=== PATIENT | female | born 2000 | race Caucasian/White ===

== ENCOUNTER 2018-12-29 01:53 | Emergency (ER) | payer OTHER ==
--- NOTE | 2018-12-29 02:14 | ER Document Report ---
ED General - General Chief Complaint: Vag Bleeding, +preg <12wks Stated Complaint: VAGINAL BLEEDING Time Seen by Provider: 12/29/18 02:05 Notes: Patient is a 18-year-old female presents with complaint of some pelvic cramping and bleeding. Yesterday she had some bleeding after having sex. She has small spotting. Today she had a few episodes of cramping and recurrent bleeding. Bleeding was light. No heavy bleeding. No passing of clots. Currently she is not having pain at this time. No fevers. No vomiting. No other complaints at this time. This is her first . She is otherwise healthy. She did have one previous ultrasound but they cannot see the baby just yet and they felt that she was too early to be able to see the baby at that time. She is unsure what her blood type is. No abnormal vaginal discharge. No dysuria. She is taking vitamins. Past Medical History - Social History Smoking Status: Never Smoker Frequency of alcohol use: None Drug Abuse: None Family History: Reviewed & Not Pertinent Review of Systems - Review of Systems Notes: My Normal Review Basic REVIEW OF SYSTEMS: CONSTITUTIONAL : Denies fever, chills, or sweats. Denies recent illness. GASTROINTESTINAL: Mild intermittent pelvic cramping. No other areas of abdominal pain.. Denies nausea, vomiting, or diarrhea. Denies constipation. Last BM: GENITOURINARY: Denies difficulty urinating, painful urination, burning, frequency, or blood in urine. FEMALE GENITOURINARY: Early . Some vaginal spotting. MUSCULOSKELETAL: Denies neck or back pain or joint pain or swelling. SKIN: Denies rash or skin lesions. NEUROLOGICAL: Denies altered mental status or loss of consciousness. ALL OTHER SYSTEMS REVIEWED AND NEGATIVE. Physical Exam - Notes Notes: General Appearance: Well nourished, alert, cooperative, no acute distress, no obvious discomfort. Well-appearing. Vitals: reviewed, See vital signs table. Eyes: PERRL, EOMI, Conjuctiva clear Mouth: No decreasd moisture Lungs: No wheezing, No rales, No rhonci, No accessory muscle use, good air exchange bilaterally. Heart: Normal rate, Regular rythm, No murmur, no rub Abdomen: Normal BS, soft, No rigidity, no reproducible tenderness to palpation of abdomen. Skin: warm, dry, appropriate color, no rash Neuro: speech clear, oriented x 3, normal affect, responds appropriately to questions. Course - Re-evaluation Re-evalutation: 12/29/18 04:33 Ultrasound shows what I expect to be is blighted ovum. I did discuss the siobhan patino and her at length about the fact that we can see gestational sac in uterus but not a . I explained to him that this can be 1 of 3 things including ectopic , blighted ovum, or early that is just not visible on ultrasound yet. Informed her she may have some recurrent bleeding. I informed her she must return to ER immediately if she has heavy bleeding or severe pain as these can be signs of ectopic . [facility] for reevaluation. Patient agrees with plan will be discharged home. Dictation of this chart was performed using voice recognition software; therefore, there may be some unintended grammatical errors. - Laboratory Result Diagrams: 12/29/18 02:18 Laboratory results interpreted by me: 12/29/18 12/29/18 02:18 02:42 Beta HCG, Quant 3255.20 H Urine Blood MODERATE H Discharge - Discharge Clinical Impression: , location unknown Condition: Good Disposition: HOME, SELF-CARE Additional Instructions: Your ultrasound shows a gestational sac in the uterus but they cannot see the baby yet. As discussed with the you this can mean 1 of 3 different things. This could mean that your is too early to see the baby just yet. This could mean that you have a blighted ovum which is where the baby never forms and eventually you will have vaginal bleeding like a normal menstrual period. On very rare occasions this could still mean that you have an ectopic . An ectopic is where you have severe pain in your abdomen and typically have vaginal bleeding as well. If you develop severe pain you must return to the ER immediately. Please follow-up with your OB doctor this week for reevaluation so that they can go over repeating the ultrasound and also repeating your blood work. Return to the ER anytime if you have any further concerns.
[2018-12-29 02:29] LABS: HEMATOCRIT 38.8 % (36.0-47.0); HEMOGLOBIN 13.8 g/dL (12.0-15.5); MEAN CORPUSCULAR HEMOGLOBIN 33.3 pg (27.0-33.4); MEAN CORPUSCULAR HGB CONC 35.7 g/dL (32.0-36.0); MEAN CORPUSCULAR VOLUME 93 fl (80-97); PLATELET COUNT 270 10^3/uL (150-450); RED BLOOD COUNT 4.16 10^6/uL (3.72-5.28); RED CELL DISTRIBUTION WIDTH 12.2 % (11.5-14.0); WHITE BLOOD COUNT 8.5 10^3/uL (4.0-10.5)
[2018-12-29 02:55] LABS: APPEARANCE,URINE CLEAR; BILIRUBIN,URINE NEGATIVE (NEGATIVE); COLOR,URINE STRAW; GLUCOSE, URINE NEGATIVE (NEGATIVE); KETONES,URINE NEGATIVE (NEGATIVE); LEUKOCYTE ESTERASE,URINE NEGATIVE (NEGATIVE); NITRITE,URINE NEGATIVE (NEGATIVE); PROTEIN,URINE NEGATIVE (NEGATIVE); URINE SPECIFIC GRAVITY 1.013; UROBILINOGEN,URINE NEGATIVE mg/dL (<2.0)
--- NOTE | 2018-12-29 04:11 | RADIOLOGY REPORT (SQ) ---
EXAM DESCRIPTION: US TRANSVAGINAL COMPLETED DATE/TME: 12/29/2018 02:05 CLINICAL HISTORY: 18 years Female, preg unknown location, bleeding COMPARISON: None TECHNIQUE: Transvaginal. LIMITATIONS: None. FINDINGS: No intrauterine gestation confirmed. There is a intrauterine cystic fluid collection measuring 0.9 cm and if it represents a viable gestational sac would correspond with a gestational age of five weeks and five days. No yolk sac, no pole, no cardiac activity. 3.3-cm right ovary, 2.6-cm left ovary, 1.8-cm possible right corpus luteum, 2.7-cm cervical length, and no free fluid. IMPRESSION: No intrauterine confirmed. Differential diagnosis includes early viable intrauterine gestation, gestational loss, and occult ECTOPIC gestation. Recommend 48 -72 hours laboratory/sonographic surveillance.
[2018-12-29 05:19] VITALS: BP 125/74
== END 2018-12-29 04:45 | disposition home or self-care (01) ==
LOC: ER 01:53
DX: O46.91 Antepartum hemorrhage, unspecified, first trimester (principal); O26.891 Other specified pregnancy related conditions, first trimester; R10.2 Pelvic and perineal pain; Z3A.01 Less than 8 weeks gestation of pregnancy
CPT/HCPCS: 36415; 76817; 81001; 84702; 85027; 86900; 86901; 99284

== ENCOUNTER 2018-12-30 21:50 | Emergency (ER) | payer OTHER ==
--- NOTE | 2018-12-31 01:29 | ER Document Report ---
ED Medical Screen (RME) - General Chief Complaint: Abdominal Pain Stated Complaint: ABDOMINAL PAIN Time Seen by Provider: 12/31/18 01:25 Notes: Patient is a 18-year-old female presents to the emergency department for generalized vaginal bleeding and pelvic pain. Patient states she was at this facility on 12/29/2018. States she had her blood drawn and had an ultrasound for vaginal bleeding and pain. Stated she was told that it may be an ectopic and she is to follow-up with [facility]. Patient states she has not followed up with anybody return to the emergency room because she continues with vaginal bleeding and has increased pain. Patient states she is gone through 3 pads in the last 8 hours. Past medical history: None Medications: None Allergies: None GENERAL: Alert, interacts well. No acute distress. ABDOMEN: Soft, Non-distended. Bowel sounds present in all 4 quadrants. Generalized suprapubic abdominal pain noted I have greeted and performed a rapid initial assessment of this patient. A comprehensive ED assessment and evaluation of the patient, analysis of test results and completion of the medical decision making process will be conducted by additional ED providers. TRAVEL OUTSIDE OF THE [place] IN LAST 30 DAYS: No - Related Data Allergies/Adverse Reactions: No Known Allergies Allergy (Unverified 12/30/18 21:59) Past Medical History Renal/ Medical History: Denies: Hx Peritoneal Dialysis Past Surgical History: Reports: Hx Orthopedic Surgery - bilateral knees Physical Exam - Vital signs Vitals: Temp Pulse Resp BP Pulse Ox 98.9 F 96 16 127/78 H 99 12/30/18 22:40 12/30/18 22:40 12/30/18 22:40 12/30/18 22:40 12/30/18 22:40 Course - Vital Signs Vital signs: Temp Pulse Resp BP Pulse Ox 98.9 F 96 16 127/78 H 99 12/30/18 22:40 12/30/18 22:40 12/30/18 22:40 12/30/18 22:40 12/30/18 22:40
[2018-12-31 02:26] LABS: ABSOLUTE LYMPHOCYTES (AUTO) 1.4 10^3/uL (0.5-4.7); ABSOLUTE MONOCYTES (AUTO) 0.4 10^3/uL (0.1-1.4); ABSOLUTE NEUT (AUTO) 6.1 10^3/uL (1.7-8.2); BASOPHILS % (AUTO) 0.1 % (0-2); EOSINOPHILS % (AUTO) 0.2 % (0-6); HEMATOCRIT 42.3 % (36.0-47.0); HEMOGLOBIN 14.7 g/dL (12.0-15.5); LYMPHOCYTES % (AUTO) 17.5 % (13-45); MEAN CORPUSCULAR HEMOGLOBIN 32.2 pg (27.0-33.4); MEAN CORPUSCULAR HGB CONC 34.8 g/dL (32.0-36.0); MEAN CORPUSCULAR VOLUME 93 fl (80-97); MONOCYTES % (AUTO) 5.5 % (3-13); PLATELET COUNT 317 10^3/uL (150-450); RED BLOOD COUNT 4.57 10^6/uL (3.72-5.28); RED CELL DISTRIBUTION WIDTH 12.2 % (11.5-14.0); SEGMENTED NEUTROPHILS % (AUTO) 76.7 % (42-78); TOTAL CELLS COUNTED % (AUTO) 100 %
[2018-12-31 02:57] LABS: APPEARANCE,URINE CLEAR; BILIRUBIN,URINE NEGATIVE (NEGATIVE); COLOR,URINE STRAW; GLUCOSE, URINE NEGATIVE (NEGATIVE); KETONES,URINE NEGATIVE (NEGATIVE); LEUKOCYTE ESTERASE,URINE NEGATIVE (NEGATIVE); NITRITE,URINE NEGATIVE (NEGATIVE); PROTEIN,URINE NEGATIVE (NEGATIVE); UROBILINOGEN,URINE NEGATIVE mg/dL (<2.0)
--- NOTE | 2018-12-31 03:57 | RADIOLOGY REPORT (SQ) ---
EXAM DESCRIPTION: US TRANSVAGINAL COMPLETED DATE/TME: 12/31/2018 01:26 CLINICAL HISTORY: 18 years, Female, preg/bleeding.pain COMPARISON: December 29, 2018 TECHNIQUE: Grayscale and Doppler sonogram of the pelvis. Transvaginal technique was used for better evaluation of the pelvic viscera FINDINGS: The uterus measures 6.9 x 4 x 3 cm. The intrauterine fluid collection present on the previous examination is no longer visualized. Endometrial stripe thickness measures 8 mm. Right ovary: Measures 3.5 x 2 x 2.1 cm. Normal doppler flow. No mass lesion. Left ovary: Measures 2.3 x 1.9 x 1.4 cm. Normal doppler flow. No mass lesion. Free fluid: None. IMPRESSION: No intrauterine is identified. The intrauterine fluid collection seen on the previous examination which presumably represented a gestational sac is no longer visualized.
[2018-12-31 04:12] VITALS: BP 121/82
--- NOTE | 2018-12-31 06:12 | ER Document Report ---
Entered by ELIZ MARROQUIN SCRIBE 12/31/18 0349 Acting as scribe for:PATRICIA RENTERIA MD ED General - General Chief Complaint: Abdominal Pain Stated Complaint: ABDOMINAL PAIN Time Seen by Provider: 12/31/18 01:25 Primary Care Provider: [facility] [Provider Group] - Follow up in 3-5 days Mode of Arrival: Ambulatory Information source: Patient Notes: Patient is a 18 year old female, currently , presents tot he emergency de partment complaining of vaginal bleeding and cramping. Patient states she had light vaginal bleeding on 12/29/18 and presented to the emergency department and told there was a possibility she would miscarry. Patient states yesterday she began to have severe abdominal cramping and heavy bleeding. TRAVEL OUTSIDE OF THE [place] IN LAST 30 DAYS: No - Related Data Allergies/Adverse Reactions: No Known Allergies Allergy (Unverified 12/30/18 21:59) Past Medical History - General Information source: Patient - Social History Smoking Status: Never Smoker Cigarette use (# per day): No Chew tobacco use (# tins/day): No Frequency of alcohol use: None Family History: Reviewed & Not Pertinent Past Surgical History: Reports: Hx Orthopedic Surgery - bilateral knees Review of Systems - Review of Systems Constitutional: No symptoms reported EENT: No symptoms reported Cardiovascular: No symptoms reported Respiratory: No symptoms reported Gastrointestinal: No symptoms reported Genitourinary: No symptoms reported Female Genitourinary: See HPI, , Vaginal bleeding Musculoskeletal: No symptoms reported Skin: No symptoms reported Hematologic/Lymphatic: No symptoms reported Neurological/Psychological: No symptoms reported -: Yes All other systems reviewed and negative Physical Exam - Vital signs Vitals: Temp Pulse Resp BP Pulse Ox 98.9 F 96 16 127/78 H 99 12/30/18 22:40 12/30/18 22:40 12/30/18 22:40 12/30/18 22:40 12/30/18 22:40 - Notes Notes: GENERAL: Alert, interacts well. No acute distress. HEAD: Normocephalic, atraumatic. EYES: Pupils equal, round, and reactive to light. Extraocular movements intact. ENT: Oral mucosa moist, tongue midline. NECK: Full range of motion. Supple. Trachea midline. LUNGS: No respiratory distress. EXTREMITIES: Moves all 4 extremities spontaneously. NEUROLOGICAL: Alert and oriented x3. Normal speech. PSYCH: Normal affect, normal mood. SKIN: Warm, dry, normal turgor. No rashes or lesions noted. Course - Vital Signs Vital signs: Temp Pulse Resp BP Pulse Ox 98.2 F 89 15 121/82 99 12/31/18 04:00 12/31/18 04:00 12/31/18 04:00 12/31/18 04:00 12/31/18 04:00 - Laboratory Result Diagrams: 12/31/18 01:35 Laboratory results interpreted by me: 12/31/18 12/31/18 01:35 01:35 Beta HCG, Quant 2301.00 H Urine Blood SMALL H Discharge - Discharge Clinical Impression: Miscarriage Disposition: HOME, SELF-CARE I personally performed the services described in the documentation, reviewed and edited the documentation which was dictated to the scribe in my presence, and it accurately records my words and actions.
== END 2018-12-31 04:12 | disposition home or self-care (01) ==
LOC: ER 21:50
DX: O03.9 Complete or unspecified spontaneous abortion without complication (principal)
CPT/HCPCS: 36415; 76817; 81001; 84702; 85025; 93976; 99284